=== PATIENT | female | born 1995 | race Two or more races ===

== ENCOUNTER 2024-06-03 15:19 | Emergency (ER) | payer OTHER ==
[~2024-06-03] VITALS: Ht 134.6 cm; Wt 54.4 kg
[2024-06-03] MEDS ORDERED: CEFTRIAXONE SODIUM 2,000 MG VIAL IV ONE (16:30)
[2024-06-03] MEDS ORDERED: CEFTRIAXONE SODIUM 2,000 MG VIAL ONE (16:41)
== END 2024-06-03 17:25 | disposition home or self-care (01) ==
LOC: ER 15:20
DX: S21.002A Unspecified open wound of left breast, initial encounter (principal); Y83.9 Surgical procedure, unspecified as the cause of abnormal reaction of the patient, or of later complication, without mention of misadventure at the time of the procedure; Y82.8 Other medical devices associated with adverse incidents; Y93.9 Activity, unspecified; Y92.89 Other specified places as the place of occurrence of the external cause; Y99.9 Unspecified external cause status; Z88.8 Allergy status to other drugs, medicaments and biological substances

== ENCOUNTER 2024-07-13 17:05 | Emergency (ER) | payer OTHER ==
[~2024-07-13] VITALS: Ht 149.9 cm; Wt 59.0 kg
[2024-07-13 17:32] VITALS: BP 118/79; O2SAT 100
[2024-07-13 18:34] LABS: HEMATOCRIT 35.7 % (36.0-45.00); HEMOGLOBIN 11.9 g/dL (12.0-15.00); MEAN CELL VOLUME 86.9 fL (80.00-100.00); MEAN CORPUSCULAR HGB CONC 33.4 g/dl (32.0-36.0); PLATELET COUNT 227 K/uL (150-450); RED BLOOD COUNT 4.11 M/uL (4.00-6.00); RED CELL DISTRIBUTION WIDTH 13.9 % (11.5-14.5)
== END 2024-07-13 19:55 | disposition home or self-care (01) ==
LOC: ER 17:07
DX: O26.891 Other specified pregnancy related conditions, first trimester (principal); R10.2 Pelvic and perineal pain; Z3A.01 Less than 8 weeks gestation of pregnancy; Z88.8 Allergy status to other drugs, medicaments and biological substances

== ENCOUNTER 2024-07-18 16:34 | Emergency (ER) | payer OTHER ==
[~2024-07-18] VITALS: Ht 149.9 cm; Wt 59.0 kg
[2024-07-18 20:05] LABS: HEMATOCRIT 37.3 % (36.0-45.00); HEMOGLOBIN 12.5 g/dL (12.0-15.00); MEAN CELL VOLUME 85.8 fL (80.00-100.00); MEAN CORPUSCULAR HEMOGLOBIN 28.9 pg (27.00-32.0); MEAN CORPUSCULAR HGB CONC 33.6 g/dl (32.0-36.0); PLATELET COUNT 220 K/uL (150-450); RED BLOOD COUNT 4.35 M/uL (4.00-6.00)
[2024-07-18 20:16] LABS: PH,URINE 7.5 (5.0-8.0); URINE APPEARANCE Clear; URINE BILIRRUBIN Negative (NEGATIVE); URINE BLOOD Negative; URINE COLOR Yellow; URINE GLUCOSE Negative (NEGATIVE); URINE KETONE Negative (NEGATIVE); URINE LEUKOCYTE Negative; URINE NITRATE Negative; URINE PROTEIN Negative (NEGATIVE)
[2024-07-18 20:19] LABS: URINE BACTERIA 623.5 uL (0.0-1933); URINE EPITHELIAL CELLS 26.5 uL (0.0-38.8); URINE RBC 5.6 uL (0.0-20.8); URINE WBC 8.3 uL (0.0-23.2)
== END 2024-07-18 22:44 | disposition home or self-care (01) ==
LOC: ER 16:34
PROVIDERS: General Practice
DX: O26.891 Other specified pregnancy related conditions, first trimester (principal); R10.2 Pelvic and perineal pain; Z3A.01 Less than 8 weeks gestation of pregnancy; Z88.8 Allergy status to other drugs, medicaments and biological substances

== ENCOUNTER 2024-09-14 23:23 | Emergency (ER) | payer OTHER ==
[~2024-09-14] VITALS: Ht 149.9 cm; Wt 61.2 kg
[2024-09-14] MEDS ORDERED: PRENATA CHEWAB1 EACH PO (23:31)
[2024-09-14 23:32] VITALS: BP 119/77; O2SAT 99
[2024-09-15] MEDS ORDERED: ACETAMINOPHEN 500 MG GEL..CAP PO STA (00:21)
[2024-09-15 01:04] LABS: URINE APPEARANCE Cloudy; URINE BILIRRUBIN Negative (NEGATIVE); URINE BLOOD Negative; URINE COLOR Yellow; URINE GLUCOSE Negative (NEGATIVE); URINE KETONE Negative (NEGATIVE); URINE LEUKOCYTE Trace; URINE NITRATE Negative; URINE UROBILINOGEN 0.2 E.U./dl
[2024-09-15 01:05] LABS: HEMATOCRIT 37.4 % (36.0-45.00); HEMOGLOBIN 12.3 g/dL (12.0-15.00); MEAN CELL VOLUME 84.8 fL (80.00-100.00); MEAN CORPUSCULAR HEMOGLOBIN 27.9 pg (27.00-32.0); MEAN CORPUSCULAR HGB CONC 32.9 g/dl (32.0-36.0); PLATELET COUNT 228 K/uL (150-450); RED BLOOD COUNT 4.41 M/uL (4.00-6.00); RED CELL DISTRIBUTION WIDTH 15.5 % (11.5-14.5)
[2024-09-15 01:08] LABS: URINE BACTERIA 3090.7 uL (0.0-1933); URINE EPITHELIAL CELLS 106.3 uL (0.0-38.8); URINE WBC 41.2 uL (0.0-23.2)
[2024-09-15 01:31] LABS: URINE CAST 0.76 uL (0.0-1.40); URINE PROTEIN 100 (NEGATIVE)
[2024-09-15] MEDS ORDERED: CEPHALEXIN500 MG PO (04:06)
== END 2024-09-15 04:41 ==
LOC: ER 23:23
PROVIDERS: General Practice
DX: O23.42 Unspecified infection of urinary tract in pregnancy, second trimester (principal); N39.0 Urinary tract infection, site not specified; O26.899 Other specified pregnancy related conditions, unspecified trimester; R10.2 Pelvic and perineal pain; Z3A.15 15 weeks gestation of pregnancy; Z88.8 Allergy status to other drugs, medicaments and biological substances; Z20.822 Contact with and (suspected) exposure to COVID-19

== ENCOUNTER 2024-09-18 17:15 | Emergency (ER) | payer OTHER ==
[~2024-09-18] VITALS: Ht 162.6 cm; Wt 68.0 kg
[~2024-09-18 17:15] MED LIST: CEPHALEXIN500 MG PO; PRENATA CHEWAB1 EACH PO
[2024-09-18 18:02] LABS: HEMATOCRIT 36.9 % (36.0-45.00); HEMOGLOBIN 12.2 g/dL (12.0-15.00); MEAN CELL VOLUME 85.8 fL (80.00-100.00); MEAN CORPUSCULAR HEMOGLOBIN 28.3 pg (27.00-32.0); PLATELET COUNT 227 K/uL (150-450)
[2024-09-18 18:26] LABS: INR < 0.93; PARTIAL THROMBOPLASTIN TIME 26.6 SECONDS (22.0-34.0)
[2024-09-18 18:27] LABS: CALCIUM 9.2 mg/dL (8.5-10.1); CREATININE SERUM 0.46 mg/dL (0.55-1.02); GFR 159.5; POTASSIUM 4.2 mEq/L (3.5-5.1)
== END 2024-09-18 20:09 | disposition home or self-care (01) ==
LOC: ER 17:15
PROVIDERS: General Practice
DX: O26.899 Other specified pregnancy related conditions, unspecified trimester (principal); R10.9 Unspecified abdominal pain; R10.2 Pelvic and perineal pain; Z3A.16 16 weeks gestation of pregnancy; Z88.8 Allergy status to other drugs, medicaments and biological substances

== ENCOUNTER 2024-10-15 18:57 | Emergency (ER) | payer OTHER ==
[~2024-10-15] VITALS: Ht 149.9 cm; Wt 63.0 kg
[2024-10-15 19:15] VITALS: BP 98/65; O2SAT 98
[2024-10-15] MEDS ORDERED: ACETAMINOPHEN 500 MG GEL..CAP PO ONE ×2 (19:45→20:23)
== END 2024-10-15 20:27 | disposition home or self-care (01) ==
LOC: ER 18:59
DX: J03.90 Acute tonsillitis, unspecified (principal); Z88.8 Allergy status to other drugs, medicaments and biological substances

== ENCOUNTER 2024-10-27 09:15 | Emergency (ER) | payer OTHER ==
[~2024-10-27] VITALS: Ht 149.9 cm; Wt 62.6 kg
[2024-10-27] MEDS ORDERED: 0.9 % SODIUM CHLORIDE 1,000 ML IV STA (09:35)
[2024-10-27] MEDS ORDERED: METOCLOPRAMIDE HCL 10 MG in DEXTROSE 5 % IN WATER 50 ML IV ONE (10:30)
[2024-10-27 10:49] LABS: PH,URINE 6.5 (5.0-8.0); URINE APPEARANCE Clear; URINE BILIRRUBIN Negative (NEGATIVE); URINE BLOOD Negative; URINE COLOR Yellow; URINE GLUCOSE Negative (NEGATIVE); URINE KETONE Negative (NEGATIVE); URINE LEUKOCYTE Negative; URINE NITRATE Negative; URINE PROTEIN Negative (NEGATIVE); URINE UROBILINOGEN 0.2 E.U./dl
[2024-10-27 10:51] LABS: HEMATOCRIT 34.9 % (36.0-45.00); HEMOGLOBIN 11.6 g/dL (12.0-15.00); MEAN CELL VOLUME 88.9 fL (80.00-100.00); MEAN CORPUSCULAR HEMOGLOBIN 29.5 pg (27.00-32.0); MEAN CORPUSCULAR HGB CONC 33.2 g/dl (32.0-36.0); PLATELET COUNT 237 K/uL (150-450); RED BLOOD COUNT 3.93 M/uL (4.00-6.00); RED CELL DISTRIBUTION WIDTH 15.8 % (11.5-14.5)
[2024-10-27 10:53] LABS: URINE EPITHELIAL CELLS 20.4 uL (0.0-38.8); URINE WBC 6.8 uL (0.0-23.2)
[2024-10-27 10:57] LABS: URINE CAST 0.29 uL (0.0-1.40); URINE RBC 1.7 uL (0.0-20.8)
[2024-10-27 12:06] LABS: CALCIUM 8.8 mg/dL (8.5-10.1); CREATININE SERUM 0.36 mg/dL (0.55-1.02); GFR 211.65; POTASSIUM 3.83 mEq/L (3.5-5.1)
== END 2024-10-27 15:08 | disposition home or self-care (01) ==
LOC: ER 09:15
PROVIDERS: Emergency Medicine
DX: O26.892 Other specified pregnancy related conditions, second trimester (principal); R42 Dizziness and giddiness; Z3A.21 21 weeks gestation of pregnancy; Z88.8 Allergy status to other drugs, medicaments and biological substances; Z20.822 Contact with and (suspected) exposure to COVID-19

== ENCOUNTER 2024-12-13 13:41 | Emergency (ER) | payer OTHER ==
[~2024-12-13] VITALS: Ht 149.9 cm; Wt 68.0 kg
[2024-12-13] MEDS ORDERED: ONDANSETRON HCL 2 MG/ML VIAL IV STA (16:21)
[2024-12-13] MEDS ORDERED: 0.9 % SODIUM CHLORIDE 1,000 ML IV STA (16:21)
[2024-12-13] MEDS ORDERED: ONDANSETRON HCL 2 MG/ML VIAL ONE (17:05)
[2024-12-13 17:38] LABS: HEMATOCRIT 39.6 % (36.0-45.00); HEMOGLOBIN 13.2 g/dL (12.0-15.00); MEAN CELL VOLUME 89.6 fL (80.00-100.00); MEAN CORPUSCULAR HEMOGLOBIN 29.8 pg (27.00-32.0); MEAN CORPUSCULAR HGB CONC 33.3 g/dl (32.0-36.0); PLATELET COUNT 212 K/uL (150-450); RED BLOOD COUNT 4.42 M/uL (4.00-6.00); RED CELL DISTRIBUTION WIDTH 15.2 % (11.5-14.5)
[2024-12-13 18:00] LABS: CALCIUM 9.3 mg/dL (8.5-10.1); CREATININE SERUM 0.41 mg/dL (0.55-1.02); GFR 182.15; POTASSIUM 3.73 mEq/L (3.5-5.1)
[2024-12-14 01:07] LABS: URINE CAST 3.38 uL (0.0-1.40); URINE RBC 6.7 uL (0.0-20.8); URINE WBC 980.3 uL (0.0-23.2)
[2024-12-14 01:07] LABS: HEMOGLOBIN 12.5 g/dL (12.0-15.00); MEAN CELL VOLUME 89.9 fL (80.00-100.00); MEAN CORPUSCULAR HEMOGLOBIN 29.5 pg (27.00-32.0); MEAN CORPUSCULAR HGB CONC 32.9 g/dl (32.0-36.0); PLATELET COUNT 190 K/uL (150-450); RED BLOOD COUNT 4.22 M/uL (4.00-6.00); RED CELL DISTRIBUTION WIDTH 15.1 % (11.5-14.5)
[2024-12-14 01:15] LABS: PH,URINE 5.5 (5.0-8.0); URINE APPEARANCE Cloudy; URINE BILIRRUBIN Negative (NEGATIVE); URINE BLOOD Negative; URINE COLOR Yellow; URINE GLUCOSE Negative (NEGATIVE); URINE LEUKOCYTE Small; URINE NITRATE Negative; URINE PROTEIN 30 (NEGATIVE); URINE UROBILINOGEN 0.2 E.U./dl
[2024-12-14 01:43] LABS: URINE BACTERIA > 9821.5 uL (0.0-1933); URINE EPITHELIAL CELLS > 201.7 uL (0.0-38.8); URINE KETONE 80 (NEGATIVE)
[2024-12-14] MEDS ORDERED: ONDANSETRON HCL 2 MG/ML VIAL IV STA (02:44)
[2024-12-14] MEDS ORDERED: ONDANSETRON HCL 2 MG/ML VIAL ONE (02:53)
[2024-12-14] MEDS ORDERED: ZOFRAN8 MG PO (02:56)
[2024-12-14] MEDS ORDERED: PROTONIX40 MG PO (02:56)
[2024-12-14] MEDS ORDERED: CEPHALEXIN250 MG/5 M PO (02:58)
== END 2024-12-14 03:17 ==
LOC: ER 13:44
PROVIDERS: Emergency Medicine
DX: R53.81 Other malaise (principal); K29.70 Gastritis, unspecified, without bleeding; Z88.8 Allergy status to other drugs, medicaments and biological substances

== ENCOUNTER 2025-01-27 02:44 | Outpatient (CLI) | payer OTHER ==
[2025-01-27 01:48] VITALS: BP 103/64
[~2025-01-27 02:44] MED LIST changes: +CEPHALEXIN250 MG/5 M PO; +PROTONIX40 MG PO; +ZOFRAN8 MG PO
[2025-01-27] MEDS ORDERED: RINGERS SOLUTION,LACTATED 1,000 ML IV SCH (03:00)
[2025-01-27] MEDS ORDERED: TERBUTALINE SULFATE 1 MG/ML AMPUL SUBCUTANEO ONE (03:00)
[2025-01-27 03:21] LABS: URINE APPEARANCE Cloudy; URINE BILIRRUBIN Negative (NEGATIVE); URINE BLOOD Negative; URINE COLOR Yellow; URINE GLUCOSE Negative (NEGATIVE); URINE LEUKOCYTE Trace; URINE NITRATE Negative; URINE PROTEIN 30 (NEGATIVE)
[2025-01-27 03:22] LABS: HEMOGLOBIN 11.7 g/dL (12.0-15.00); MEAN CORPUSCULAR HEMOGLOBIN 29.4 pg (27.00-32.0); MEAN CORPUSCULAR HGB CONC 33.4 g/dl (32.0-36.0); PLATELET COUNT 179 K/uL (150-450); RED BLOOD COUNT 3.97 M/uL (4.00-6.00); RED CELL DISTRIBUTION WIDTH 15.5 % (11.5-14.5)
[2025-01-27 03:25] LABS: URINE BACTERIA 3381.8 uL (0.0-1933); URINE CAST 0.58 uL (0.0-1.40); URINE EPITHELIAL CELLS 113.3 uL (0.0-38.8); URINE KETONE 40 (NEGATIVE); URINE RBC 4.4 uL (0.0-20.8); URINE WBC 77.4 uL (0.0-23.2)
[2025-01-27] MEDS ORDERED: CEFAZOLIN SODIUM 1,000 MG VIAL IV ONE (04:15)
[2025-01-27] MEDS ORDERED: CEFUROXIME500 MG PO (06:53)
[2025-01-27 07:13] VITALS: BP 104/67
[2025-01-27 07:15] VITALS: BP 104/67
[2025-01-27] MEDS ORDERED: CEFAZOLIN SODIUM 1,000 MG VIAL IV SCH (12:00)
== END 2025-01-27 07:15 | disposition home or self-care (01) ==
LOC: OBS/DEL 02:44
PROVIDERS: ATTEND Specialist
DX: O23.43 Unspecified infection of urinary tract in pregnancy, third trimester (principal); N39.0 Urinary tract infection, site not specified; Z3A.34 34 weeks gestation of pregnancy

== ENCOUNTER 2025-02-04 14:14 | Inpatient (IN) | payer OTHER ==
[~2025-02-04] VITALS: Ht 149.9 cm; Wt 68.0 kg
[2025-02-04 13:24] VITALS: BP 116/65
[~2025-02-04 14:14] MED LIST changes: +CEFUROXIME500 MG PO
[2025-02-04] MEDS ORDERED: MORPHINE SULFATE 4 MG/ML CARTRIDGE IV PRN (14:45)
[2025-02-04] MEDS ORDERED: RINGERS SOLUTION,LACTATED 1,000 ML IV SCH (14:45)
[2025-02-04 15:07] VITALS: BP 108/74
[2025-02-04 15:18] LABS: MEAN CELL VOLUME 89.5 fL (80.00-100.00); MEAN CORPUSCULAR HGB CONC 33.4 g/dl (32.0-36.0); RED BLOOD COUNT 2.62 M/uL (4.00-6.00); RED CELL DISTRIBUTION WIDTH 15.4 % (11.5-14.5)
[2025-02-04 15:25] LABS: MEAN CORPUSCULAR HEMOGLOBIN 29.7 pg (27.00-32.0)
[2025-02-04 15:26] LABS: HEMATOCRIT 23.4 % (36.0-45.00); HEMOGLOBIN 7.8 g/dL (12.0-15.00); PLATELET COUNT 118 K/uL (150-450)
[2025-02-04 15:35] VITALS: BP 116/65
[2025-02-04 15:38] LABS: INR 1.03; PARTIAL THROMBOPLASTIN TIME 32.2 SECONDS (22.0-34.0); PROTHROMBIN TIME 11.2 SECONDS (9.0-11.5)
[2025-02-04 16:09] LABS: URINE APPEARANCE Clear; URINE BILIRRUBIN Negative (NEGATIVE); URINE BLOOD Negative; URINE COLOR Yellow; URINE GLUCOSE Negative (NEGATIVE); URINE LEUKOCYTE Negative; URINE NITRATE Negative; URINE PROTEIN Negative (NEGATIVE)
[2025-02-04 16:10] LABS: URINE KETONE 80 (NEGATIVE)
[2025-02-04 16:12] LABS: URINE BACTERIA 25.7 uL (0.0-1933); URINE EPITHELIAL CELLS 6.4 uL (0.0-38.8); URINE WBC 5.8 uL (0.0-23.2)
[2025-02-04] MEDS ORDERED: SOD FERRIC GLUC COMPLX/SUCROSE 62.5 MG/5 ML AMPUL IV SCH (17:00)
[2025-02-04] MEDS ORDERED: TERBUTALINE SULFATE 1 MG/ML AMPUL SUBCUTANEO SCH (18:15)
[2025-02-04] MEDS ORDERED: BETAMETHASONE ACETATE,SOD PHOS 30 MG/5 ML ML IM ONE (18:15)
[2025-02-04 18:53] LABS: URINE RBC 1.7 uL (0.0-20.8)
[2025-02-04 19:40] VITALS: BP 103/65; O2SAT 99
[2025-02-04] MEDS ORDERED: NIFEDIPINE 30 MG TAB.SA.OSM PO SCH (21:00)
[2025-02-04 23:05] VITALS: BP 101/64
[2025-02-05 03:00] VITALS: BP 105/66; O2SAT 98
[2025-02-05 07:08] VITALS: BP 103/62; O2SAT 99
[2025-02-05] MEDS ORDERED: FOLIC ACID 5 MG/ML VIAL IV SCH (10:08)
[2025-02-05 12:00] VITALS: BP 104/65; O2SAT 100
[2025-02-05 15:28] VITALS: BP 103/62
[2025-02-05] MEDS ORDERED: BETAMETHASONE ACETATE,SOD PHOS 30 MG/5 ML ML IM NR (18:20)
[2025-02-05 19:33] VITALS: BP 95/60
[2025-02-05 23:19] VITALS: BP 99/61
[2025-02-06 03:28] VITALS: BP 104/67
[2025-02-06 06:07] VITALS: BP 92/62; O2SAT 98
[2025-02-06] MEDS ORDERED: RINGERS SOLUTION,LACTATED 1,000 ML IV SCH (08:00)
[2025-02-06 09:00] VITALS: BP 102/63
[2025-02-06 10:40] VITALS: BP 101/65; O2SAT 98
[2025-02-06] MEDS ORDERED: LOPERAMIDE HCL 2 MG CAPSULE PO STA (11:28)
[2025-02-06 16:30] VITALS: BP 104/63
[2025-02-07 00:03] VITALS: BP 114/64
[2025-02-08 07:31] LABS: HEMATOCRIT 34.9 % (36.0-45.00); HEMOGLOBIN 11.7 g/dL (12.0-15.00); MEAN CELL VOLUME 88.3 fL (80.00-100.00); MEAN CORPUSCULAR HEMOGLOBIN 29.6 pg (27.00-32.0); MEAN CORPUSCULAR HGB CONC 33.4 g/dl (32.0-36.0); PLATELET COUNT 154 K/uL (150-450); RED BLOOD COUNT 3.95 M/uL (4.00-6.00); RED CELL DISTRIBUTION WIDTH 16.2 % (11.5-14.5)
== END 2025-02-07 07:16 | disposition home or self-care (01) | DRG 831 ==
LOC: OBS/DEL 14:14 → OB/GYN 15:44 → LDR 15:44 → OB/GYN 02-06 08:35
PROVIDERS: Obstetrics & Gynecology; ADMIT Specialist; ATTEND Specialist
PROC: 4A1HXCZ Monitoring of Products of Conception, Cardiac Rate, External Approach (ICD-10-PCS; principal; 2025-02-04)
PROC: 30233N1 Transfusion of Nonautologous Red Blood Cells into Peripheral Vein, Percutaneous Approach (ICD-10-PCS; 2025-02-06)
PROC: BY4FZZZ Ultrasonography of Third Trimester, Single Fetus (ICD-10-PCS; 2025-02-06)
PROC: BU4CZZZ Ultrasonography of Uterus and Ovaries (ICD-10-PCS; 2025-02-06)
DX: O99.013 Anemia complicating pregnancy, third trimester (principal); O60.03 Preterm labor without delivery, third trimester; D64.9 Anemia, unspecified; O35.3XX0 Maternal care for (suspected) damage to fetus from viral disease in mother, not applicable or unspecified; O36.8130 Decreased fetal movements, third trimester, not applicable or unspecified; Z3A.35 35 weeks gestation of pregnancy

== ENCOUNTER 2025-02-21 09:51 | Inpatient (IN) | payer OTHER ==
[~2025-02-21] VITALS: Ht 149.9 cm; Wt 70.8 kg
[2025-02-21 10:32] LABS: HEMATOCRIT 41.4 % (36.0-45.00); HEMOGLOBIN 13.8 g/dL (12.0-15.00); MEAN CELL VOLUME 87.8 fL (80.00-100.00); MEAN CORPUSCULAR HEMOGLOBIN 29.2 pg (27.00-32.0); MEAN CORPUSCULAR HGB CONC 33.3 g/dl (32.0-36.0); PLATELET COUNT 173 K/uL (150-450); RED BLOOD COUNT 4.72 M/uL (4.00-6.00); RED CELL DISTRIBUTION WIDTH 15.8 % (11.5-14.5); URINE APPEARANCE Clear; URINE BILIRRUBIN Negative (NEGATIVE); URINE BLOOD Negative; URINE COLOR Yellow; URINE GLUCOSE Negative (NEGATIVE); URINE KETONE Negative (NEGATIVE); URINE LEUKOCYTE Negative; URINE NITRATE Negative; URINE PROTEIN Negative (NEGATIVE)
[2025-02-21 10:33] LABS: URINE BACTERIA 2502.9 uL (0.0-1933); URINE RBC 9.1 uL (0.0-20.8); URINE WBC 34.3 uL (0.0-23.2)
[2025-02-21 10:55] LABS: INR < 0.93; PARTIAL THROMBOPLASTIN TIME 27.1 SECONDS (22.0-34.0); PROTHROMBIN TIME 10.1 SECONDS (9.0-11.5)
[2025-02-21 11:09] LABS: ALBUMIN 2.7 gm/dL (3.4-5.0); BILIRUBIN TOTAL 0.33 mg/dL (0.3-1.2); CALCIUM 9.3 mg/dL (8.5-10.1); CREATININE SERUM 0.42 mg/dL (0.55-1.02); GFR 175.98; POTASSIUM 4.12 mEq/L (3.5-5.1); TOTAL PROTEIN 6.7 gm/dL (6.4-8.2)
[2025-02-24 06:21] VITALS: BP 108/72
[2025-02-24] MEDS ORDERED: ERYTHROMYCIN BASE OPHT 1GM EACH TUBE OP ONE (07:33)
[2025-02-24] MEDS ORDERED: OXYTOCIN 10 UNITS/ML VIAL ONE (07:33)
[2025-02-24] MEDS ORDERED: CEFAZOLIN SODIUM 1,000 MG VIAL ONE ×2 (07:33→07:37)
[2025-02-24] MEDS ORDERED: MORPHINE SULFATE 4 MG/ML CARTRIDGE IV PRN (09:30)
[2025-02-24] MEDS ORDERED: RINGERS SOLUTION,LACTATED 1,000 ML IV SCH (09:30)
[2025-02-24] MEDS ORDERED: MORPHINE SULFATE 4 MG/ML VIAL IV ONE ×2 (09:40→10:10)
[2025-02-24 12:23] VITALS: BP 104/63
[2025-02-24 16:00] VITALS: BP 106/59
[2025-02-24] MEDS ORDERED: KETOROLAC TROMETHAMINE 30 MG VIAL IM ONE (22:00)
[2025-02-25] VITALS: BP 101/65
[2025-02-25 02:29] LABS: HEMATOCRIT 38.5 % (36.0-45.00); HEMOGLOBIN 13.2 g/dL (12.0-15.00); MEAN CELL VOLUME 85.4 fL (80.00-100.00); MEAN CORPUSCULAR HEMOGLOBIN 29.2 pg (27.00-32.0); RED BLOOD COUNT 4.51 M/uL (4.00-6.00); WHITE BLOOD COUNT 16.62 K/uL (4.5-11.0)
[2025-02-25 02:30] LABS: MEAN CORPUSCULAR HGB CONC 34.3 g/dl (32.0-36.0); NEUTROPHILS MAN 13.5 %; PLATELET COUNT 177 K/uL (150-450); RED CELL DISTRIBUTION WIDTH 15.1 % (11.5-14.5)
[2025-02-25 04:30] VITALS: BP 103/70
[2025-02-25] MEDS ORDERED: IBUprofen 800 MG TABLET PO SCH ×2 (09:00→13:00)
[2025-02-25 09:08] VITALS: BP 113/73
[2025-02-25] MEDS ORDERED: SIMETHICONE 125 MG CAPSULE PO SCH (13:00)
[2025-02-25] MEDS ORDERED: DOCUSATE SODIUM 100MG CAP PO SCH (17:00)
[2025-02-25 17:24] VITALS: BP 103/70
[2025-02-25 20:10] VITALS: BP 103/68
[2025-02-26] VITALS: BP 104/71
[2025-02-26 08:35] VITALS: BP 105/71
[2025-02-26 16:53] VITALS: BP 107/78
[2025-02-26 23:59] VITALS: BP 118/79
[2025-02-27] MEDS ORDERED: IBUPROFEN800 MG PO (07:48)
[2025-02-27 08:00] VITALS: BP 109/76
== END 2025-02-27 12:38 | disposition home or self-care (01) | DRG 785 ==
LOC: O/R 02-24 05:18 → OB/GYN 02-24 09:51
PROVIDERS: ADMIT Specialist; ATTEND Specialist
PROC: 0UB70ZZ Excision of Bilateral Fallopian Tubes, Open Approach (ICD-10-PCS; 2025-02-24)
PROC: 4A1HXCZ Monitoring of Products of Conception, Cardiac Rate, External Approach (ICD-10-PCS; 2025-02-24)
PROC: 10D00Z1 Extraction of Products of Conception, Low, Open Approach (ICD-10-PCS; principal; 2025-02-24 14:30)
DX: O34.211 Maternal care for low transverse scar from previous cesarean delivery (principal); Z3A.38 38 weeks gestation of pregnancy; Z37.0 Single live birth; Z30.2 Encounter for sterilization

== ENCOUNTER 2025-03-04 13:57 | Emergency (ER) | payer OTHER ==
[~2025-03-04] VITALS: Ht 149.9 cm; Wt 68.0 kg
[~2025-03-04 13:57] MED LIST changes: +IBUPROFEN800 MG PO
[2025-03-04] MEDS ORDERED: RINGERS SOLUTION,LACTATED 1,000 ML IV SCH (14:30)
[2025-03-04 15:42] LABS: BASO % 0.5 % (0.1-1.2); EOS # 0.25 (0.04-0.54); EOS % 2.9 % (0.7-7.0); HEMATOCRIT 41.6 % (34.1-44.9); HEMOGLOBIN 13.9 g/dL (11.2-15.7); LYMPH # 1.73 (1.18-3.74); MEAN CORPUSCULAR HEMOGLOBIN 29.6 pg (25.6-32.2); MONO % 5.8 % (4.7-12.5); NEUT % 70.5 % (34.0-71.1); PLATELET COUNT 257 K/uL (163-369); RED CELL DISTRIBUTION WIDTH 14.2 % (11.6-14.4)
[2025-03-04 16:30] LABS: PARTIAL THROMBOPLASTIN TIME 27.5 SECONDS (22.0-34.0); PROTHROMBIN TIME 10.9 SECONDS (9.0-11.5)
[2025-03-04 17:40] LABS: ALBUMIN 2.8 gm/dL (3.4-5.0); BILIRUBIN TOTAL 0.29 mg/dL (0.3-1.2); CALCIUM 8.8 mg/dL (8.5-10.1); CREATININE SERUM 0.51 mg/dL (0.55-1.02); GFR 140.65; GLOBULINA 4.3 G/DL (2.4-3.5); POTASSIUM 4.15 mEq/L (3.5-5.1); TOTAL PROTEIN 7.1 gm/dL (6.4-8.2)
[2025-03-05] MEDS ORDERED: BACTRIM DS TAB1 EACH PO (19:00)
[2025-03-05] MEDS ORDERED: BUTALB-ACETAMI1 EAC2 PO (19:00)
[2025-03-05] MEDS ORDERED: PROTONIX40 MG PO (19:00)
== END 2025-03-04 18:35 | disposition home or self-care (01) ==
LOC: ER 13:57
PROVIDERS: Emergency Medicine
DX: O90.89 Other complications of the puerperium, not elsewhere classified (principal); R53.1 Weakness; Z88.8 Allergy status to other drugs, medicaments and biological substances

== ENCOUNTER 2025-03-05 07:58 | Emergency (ER) | payer OTHER ==
[~2025-03-05] VITALS: Ht 149.9 cm; Wt 59.0 kg
[2025-03-05] MEDS ORDERED: 0.9 % SODIUM CHLORIDE 1,000 ML IV STA (08:45)
[2025-03-05] MEDS ORDERED: LABETALOL HCL 100 MG TABLET PO STA (08:46)
[2025-03-05 09:34] LABS: BASO % 0.6 % (0.1-1.2); EOS # 0.27 (0.04-0.54); EOS % 2.7 % (0.7-7.0); HEMATOCRIT 40.7 % (34.1-44.9); HEMOGLOBIN 13.8 g/dL (11.2-15.7); LYMPH # 1.79 (1.18-3.74); LYMPH % 18.2 % (19.3-53.1); MONO # 0.62 (0.24-0.82); MONO % 6.3 % (4.7-12.5); NEUT # 7.08 (1.56-6.13); NEUT % 71.9 % (34.0-71.1); PLATELET COUNT 255 K/uL (163-369); RED BLOOD COUNT 4.76 M/uL (3.93-5.22)
[2025-03-05 09:56] LABS: INR 1.01; PARTIAL THROMBOPLASTIN TIME 22.5 SECONDS (22.0-34.0)
[2025-03-05 10:09] LABS: ALBUMIN 2.7 gm/dL (3.4-5.0); ALKALINE PHOSPHATASE 137 U/L (50-136); ALT/SGPT 22 U/L (12-78); ANION GAP 11 (10.0-20.0); AST/SGOT 21 U/L (15-37); BILIRUBIN TOTAL 0.37 mg/dL (0.3-1.2); BILIRUBIN,CONJUGATED < 0.10 mg/dL (0.0-0.2); BILIRUBIN,UNCONJUGATED 0.27 mg/dL (0.0-0.6); BLOOD UREA NITROGEN 8 mg/dL (7-18); BUN CREA RATIO 14 (7.0-25.0); CALCIUM 8.5 mg/dL (8.5-10.1); CARBON DIOXIDE 24 mEq/L (21-32); CHLORIDE 112 mmol/L (98-107); CREATININE SERUM 0.56 mg/dL (0.55-1.02); GFR 126.26; GLUCOSE FASTING 95 mg/dL (65-100); OSMOLALITY SERUM 283 MOSM/KG (275-295); POTASSIUM 3.87 mEq/L (3.5-5.1); SODIUM 143 mmol/L (136-145); TOTAL PROTEIN 6.5 gm/dL (6.4-8.2)
[2025-03-05] MEDS ORDERED: NIFEDIPINE 20 MG CAPSULE PO STA (12:20)
[2025-03-05 15:25] LABS: PH,URINE 7.5 (5.0-8.0); URINE APPEARANCE Cloudy; URINE BILIRRUBIN Negative (NEGATIVE); URINE BLOOD Large; URINE COLOR Yellow; URINE GLUCOSE Negative (NEGATIVE); URINE KETONE Negative (NEGATIVE); URINE LEUKOCYTE Large; URINE NITRATE Negative; URINE PROTEIN Negative (NEGATIVE)
[2025-03-05 15:26] LABS: URINE BACTERIA 1436.8 uL (0.0-1933); URINE EPITHELIAL CELLS 54.7 uL (0.0-38.8); URINE RBC 2.6 uL (0.0-20.8); URINE WBC 521.3 uL (0.0-23.2)
[2025-03-05] MEDS ORDERED: BACTRIM DS TAB1 EACH PO (19:00)
[2025-03-05] MEDS ORDERED: BUTALB-ACETAMI1 EAC2 PO (19:00)
[2025-03-05] MEDS ORDERED: PROTONIX40 MG PO (19:00)
== END 2025-03-05 19:17 | disposition home or self-care (01) ==
LOC: ER 07:58
PROVIDERS: General Practice
DX: O89.4 Spinal and epidural anesthesia-induced headache during the puerperium (principal); O86.20 Urinary tract infection following delivery, unspecified; N39.0 Urinary tract infection, site not specified; Z88.8 Allergy status to other drugs, medicaments and biological substances; I10 Essential (primary) hypertension

== ENCOUNTER 2025-03-06 19:01 | Emergency (ER) | payer OTHER ==
[~2025-03-06] VITALS: Ht 162.6 cm; Wt 63.5 kg
[~2025-03-06 19:01] MED LIST changes: +BACTRIM DS TAB1 EACH PO; +BUTALB-ACETAMI1 EAC2 PO
[2025-03-06] MEDS ORDERED: hydrALAZINE HCL 20 MG VIAL ONE (20:12)
[2025-03-06] MEDS ORDERED: MAGNESIUM SULFATE 50% 1,000 MG/2 ML VIAL ONE (20:12)
[2025-03-06] MEDS ORDERED: MAGNESIUM SULFATE IN WATER 50 ML IV ONE (20:15)
[2025-03-06] MEDS ORDERED: hydrALAZINE HCL 20 MG VIAL IV ONE (20:15)
[2025-03-06 20:55] LABS: URINE APPEARANCE Clear; URINE BILIRRUBIN Negative (NEGATIVE); URINE BLOOD Negative; URINE COLOR Yellow; URINE GLUCOSE Negative (NEGATIVE); URINE KETONE Negative (NEGATIVE); URINE LEUKOCYTE Negative; URINE NITRATE Negative; URINE PROTEIN Negative (NEGATIVE); URINE UROBILINOGEN 0.2 E.U./dl
[2025-03-06 20:56] LABS: BASO % 0.5 % (0.1-1.2); EOS % 1.4 % (0.7-7.0); HEMATOCRIT 45.1 % (34.1-44.9); LYMPH # 1.72 (1.18-3.74); LYMPH % 11.6 % (19.3-53.1); MEAN CORPUSCULAR HEMOGLOBIN 28.5 pg (25.6-32.2); MONO % 4.7 % (4.7-12.5); NEUT # 12.03 (1.56-6.13); NEUT % 81.5 % (34.0-71.1); PLATELET COUNT 290 K/uL (163-369); RED BLOOD COUNT 5.27 M/uL (3.93-5.22)
[2025-03-06 20:57] LABS: EOS # 0.21 (0.04-0.54); MONO # 0.69 (0.24-0.82)
[2025-03-06 20:59] LABS: URINE BACTERIA 80.6 uL (0.0-1933); URINE EPITHELIAL CELLS 1.7 uL (0.0-38.8); URINE RBC 3.9 uL (0.0-20.8); URINE WBC 5.5 uL (0.0-23.2)
[2025-03-06 21:14] LABS: BILIRUBIN TOTAL 0.37 mg/dL (0.3-1.2); CALCIUM 8.6 mg/dL (8.5-10.1); CREATININE SERUM 0.6 mg/dL (0.55-1.02); GFR 116.6; GLOBULINA 4.4 G/DL (2.4-3.5); POTASSIUM 4.02 mEq/L (3.5-5.1); TOTAL PROTEIN 7.4 gm/dL (6.4-8.2)
[2025-03-06] MEDS ORDERED: ORPHENADRINE CITRATE 30 MG/ML AMPUL IM ONE (23:30)
[2025-03-07] MEDS ORDERED: ORPHENADRINE CITRATE 30 MG/ML AMPUL ONE (00:53)
[2025-03-07] MEDS ORDERED: LABETALOL HCL 200 MG/40 ML VIAL IV STA (01:42)
[2025-03-07] MEDS ORDERED: LABETALOL HCL 100 MG/20 ML ML ONE (01:50)
[2025-03-07] MEDS ORDERED: KETOROLAC TROMETHAMINE 30 MG VIAL ONE (13:27)
[2025-03-07] MEDS ORDERED: KETOROLAC TROMETHAMINE 30 MG VIAL IV STA (14:36)
[2025-03-07] MEDS ORDERED: COZAAR25 MG PO (14:59)
== END 2025-03-07 15:05 | disposition home or self-care (01) ==
LOC: ER 19:01
PROVIDERS: General Practice
DX: I16.9 Hypertensive crisis, unspecified (principal); I10 Essential (primary) hypertension; Z88.8 Allergy status to other drugs, medicaments and biological substances; R51.9 Headache, unspecified

== ENCOUNTER 2025-03-24 06:14 | Emergency (ER) | payer OTHER ==
[~2025-03-24] VITALS: Ht 149.9 cm; Wt 60.8 kg
[~2025-03-24 06:14] MED LIST changes: +COZAAR25 MG PO
[2025-03-24] MEDS ORDERED: ACETAMINOPHEN 500 MG GEL..CAP PO STA (07:57)
== END 2025-03-24 08:18 | disposition home or self-care (01) ==
LOC: ER 06:14
DX: S53.401A Unspecified sprain of right elbow, initial encounter (principal); S50.11XA Contusion of right forearm, initial encounter; W18.39XA Other fall on same level, initial encounter; Y93.89 Activity, other specified; Y92.89 Other specified places as the place of occurrence of the external cause; Y99.9 Unspecified external cause status; R10.9 Unspecified abdominal pain; Z88.8 Allergy status to other drugs, medicaments and biological substances

== ENCOUNTER 2025-05-31 22:08 | Emergency (ER) | payer OTHER ==
[~2025-05-31] VITALS: Ht 149.9 cm; Wt 59.0 kg
[2025-05-31 22:17] VITALS: BP 120/77; O2SAT 99
[2025-05-31] MEDS ORDERED: ONDANSETRON HCL 2 MG/ML VIAL IV ONE (22:45)
[2025-05-31 23:07] LABS: BASO % 0.6 % (0.1-1.2); EOS # 0.15 (0.04-0.54); EOS % 1.4 % (0.7-7.0); LYMPH # 2.39 (1.18-3.74); LYMPH % 22.2 % (19.3-53.1); MEAN PLATELET VOLUME 11.40 fl (9.4-12.4); MONO # 0.83 (0.24-0.82); MONO % 7.7 % (4.7-12.5); NEUT # 7.30 (1.56-6.13); NEUT % 67.8 % (34.0-71.1); RED CELL DISTRIBUTION WIDTH 14.1 % (11.6-14.4)
[2025-06-01 01:20] LABS: COVID-19 AG NEGATIVE (NEGATIVE)
== END 2025-06-01 02:48 ==
LOC: ER 22:08
PROVIDERS: General Practice
DX: R11.2 Nausea with vomiting, unspecified (principal); R53.1 Weakness; Z20.822 Contact with and (suspected) exposure to COVID-19; Z88.8 Allergy status to other drugs, medicaments and biological substances